=== PATIENT | female | born 1960 | race Caucasian/White ===

== ENCOUNTER 2017-12-16 19:15 | Emergency (ER) | payer BC ==
[~2017-12-16] VITALS: Ht 167.6 cm; Wt 75.3 kg
--- NOTE | 2017-12-16 20:45 | NUR ---
Patient discharged to home in stable conditon WITH TAKING PATIENT HOME. Written and verbal after care instructions given. Patient verbalizes understanding of instructions. PATIENT WILL FOLLOW UP WITH DR PABLO IN AM
[2017-12-16 20:47] VITALS: BP 120/75
== END 2017-12-16 20:49 | disposition home or self-care (01) ==
LOC: ER 19:20
DX: H43.391 Other vitreous opacities, right eye (principal); Z90.49 Acquired absence of other specified parts of digestive tract
CPT/HCPCS: A4663; J7030

== ENCOUNTER 2019-05-03 13:09 | Emergency (ER) | payer BC, MEDICAID ==
[~2019-05-03] VITALS: Ht 167.6 cm; Wt 77.1 kg
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
--- NOTE | 2019-05-03 13:36 | NUR ---
JILLIAN GONZALEZ AT BEDSIDE FOR MSE.
--- NOTE | 2019-05-03 15:28 | NUR ---
PT TAKEN TO RADIOLOGY FOR CT SCAN.
--- NOTE | 2019-05-03 15:50 | NUR ---
Patient discharged to home in stable conditon. Written and verbal after care instructions given. Patient verbalizes understanding of instructions. ALL BELONGINGS W/ PT. PT SELF-AMBULATED W/O DIFFICULTY.
--- NOTE | 2019-05-03 15:59 | NUR ---
SAFE CRUTCH-USE EDUCATION PROVIDED. PT DEMONSTRATES ABILITY TO AMBULATE USING CRUTCHES SAFELY.
[2019-05-03 16:00] VITALS: BP 103/66
== END 2019-05-03 16:06 | disposition home or self-care (01) ==
LOC: ER 13:10
DX: S93.602A Unspecified sprain of left foot, initial encounter (principal); Z90.49 Acquired absence of other specified parts of digestive tract; X50.1XXA Overexertion from prolonged static or awkward postures, initial encounter; Y93.89 Activity, other specified; Y92.89 Other specified places as the place of occurrence of the external cause; Y99.8 Other external cause status
CPT/HCPCS: 73630; 73700; A4663

== ENCOUNTER 2020-08-25 15:00 | Emergency (ER) | payer MEDICAID ==
[~2020-08-25] VITALS: Ht 170.2 cm; Wt 73.0 kg
--- NOTE | 2020-08-25 15:25 | NUR ---
at bedside to examine pt.
--- NOTE | 2020-08-25 15:46 | NUR ---
patient taken down for ct. via wheel-chair.
--- NOTE | 2020-08-25 16:13 | NUR ---
patient back from CT.
--- NOTE | 2020-08-25 16:31 | NUR ---
at bedside to discuss test results with pt.
--- NOTE | 2020-08-25 16:39 | NUR ---
dcd instruction and prescription given to pt. who verbalized understanding. Pt. left room AAOx4. no c/of pain.
== END 2020-08-25 16:43 | disposition home or self-care (01) ==
LOC: ER 15:00
DX: S09.90XA Unspecified injury of head, initial encounter (principal); S16.1XXA Strain of muscle, fascia and tendon at neck level, initial encounter; S23.41XA Sprain of ribs, initial encounter; S39.012A Strain of muscle, fascia and tendon of lower back, initial encounter; V49.69XA Unspecified car occupant injured in collision with other motor vehicles in traffic accident, initial encounter; Y92.410 Unspecified street and highway as the place of occurrence of the external cause; R91.8 Other nonspecific abnormal finding of lung field; R03.0 Elevated blood-pressure reading, without diagnosis of hypertension; R51.9 Headache, unspecified
CPT/HCPCS: 70450; 71250; 72125; 72131; A4663

== ENCOUNTER 2023-11-29 05:01 | Emergency (ER) | payer MEDICAID ==
[~2023-11-29] VITALS: Ht 170.2 cm; Wt 77.1 kg
[2023-11-29] MEDS ORDERED: FLUORESCEIN SODIUM 1 MG STRIP ONE (05:45)
[2023-11-29] MEDS ORDERED: TETRACAINE HCL 0.5% OPHT DROP 2 ML BOTTLE ONE (05:45)
[2023-11-29] MEDS: TETRACAINE HCL 0.5% OPHT DROP 2 ML BOTTLE OP ONE (05:47)
[2023-11-29] MEDS: FLUORESCEIN SODIUM 1 MG STRIP OP ONE (05:47)
[2023-11-29] MEDS ORDERED: GENT5DRO4 EACHEYE ×2 (06:05→21:30)
[2023-11-29 06:32] VITALS: BP 130/78; O2SAT 99
[2023-11-29] MEDS ORDERED: CIPR2.5D14 EACHEYE (23:22)
[2023-11-30] MEDS ORDERED: ERYT3.5O24 EACHEYE (00:25)
== END 2023-11-29 06:32 | disposition home or self-care (01) ==
LOC: ER 05:01
DX: H16.9 Unspecified keratitis (principal); Z79.899 Other long term (current) drug therapy; Z90.49 Acquired absence of other specified parts of digestive tract
CPT/HCPCS: A4606; A4663